=== PATIENT | male | born 1965 | race Caucasian/White ===

== ENCOUNTER 2018-12-07 11:32 | Emergency (ER) | payer MEDICARE ==
[~2018-12-07] VITALS: Ht 193 cm; Wt 105.5 kg
[2018-12-07 11:44] VITALS: Ht 193 cm; Wt 105.5 kg
[2018-12-07] MEDS ORDERED: LISINOPRIL20 MG PO (11:45)
[2018-12-07] MEDS ORDERED: BENZTROPINE MESY1 MG PO (11:46)
[2018-12-07] MEDS ORDERED: PROZAC40 MG PO (11:46)
[2018-12-07] MEDS ORDERED: ZYPREXA10 MG PO (11:46)
[2018-12-07] MEDS ORDERED: OMEPRAZOLE40 MG PO (11:47)
[2018-12-07] MEDS ORDERED: INCRUSE ELLI62.5 MCG INH (11:47)
[2018-12-07] MEDS ORDERED: FERROUS SULFAT325 MG PO (11:47)
[2018-12-07] MEDS ORDERED: ALBUTEROL SULF8.5 GM INH (11:48)
[2018-12-07] MEDS ORDERED: CRESTOR20 MG PO (11:48)
[2018-12-07] MEDS ORDERED: VASCEPA1 GM PO (11:48)
[2018-12-07] MEDS ORDERED: GLUCOPHAGE1000 MG PO (11:49)
[2018-12-07] MEDS ORDERED: GLUCOTROL 5 MG T5 MG PO (11:49)
[2018-12-07 12:41] LABS: BASOPHILS 0.2 % (0-2); EOSINOPHILS 0.9 % (0-7); HEMATOCRIT 37.9 % (42.0-54.0); HEMOGLOBIN 12.6 g/dL (13.5-17.5); IMMATURE GRANULOCYTES 0.2 % (0-5); LYMPHOCYTES 18.6 % (15-50); MCH 29.9 pg (26.0-34.0); MCHC 33.2 g/dL (31.0-37.0); MCV 89.8 fL (80.0-100.0); MEAN PLATELET VOLUME 9.3 fL (7.4-10.4); MONOCYTES 6.4 % (2-11); NEUTROPHILS 73.7 % (40-80); PLATELET COUNT 463 10x3/uL (130-400); RBC 4.22 10x6/uL (4.20-6.10); RDW 13.4 % (11.5-14.5)
[2018-12-07 12:46] LABS: INR 1.08 (0.85-1.17); PROTIME 13.5 SECONDS (11.6-15.0)
[2018-12-07 12:47] LABS: APTT 30.8 SECONDS (22.8-39.4)
[2018-12-07 13:15] LABS: ALKALINE PHOSPHATASE 41 U/L (46-116); ALT (SGPT) 20 U/L (10-68); BILIRUBIN - TOTAL 0.29 mg/dL (0.2-1.3); CALC OSMOLALITY 265 mosm/kg (275-300); CALCIUM 8.2 mg/dL (8.5-10.1); CARBON DIOXIDE 30.5 mmol/L (21.0-32.0); CHLORIDE - SERUM 101 mmol/L (98-107); GLUCOSE 74 mg/dL (74-106); POTASSIUM - SERUM 3.1 mmol/L (3.5-5.1); PROTEIN - SERUM 7.5 g/dL (6.4-8.2); SODIUM 133 mmol/L (136-145); UREA NITROGEN 14 mg/dL (7-18); eGFR NON AFRICAN AMERICAN 83 mL/min (90-120)
[2018-12-07 13:24] LABS: CKMB 1.1 U/L (0.0-3.6); CREATINE KINASE 85 UL (21-232); TROPONIN-I < 0.017 ng/mL (0.000-0.060)
[2018-12-07 15:58] LABS: ERYTHROCYTE SEDIMENTATION RATE 42 mm/hr (0-20)
[2018-12-07 16:12] LABS: APPEARANCE CLEAR (CLEAR); BILIRUBIN NEGATIVE (NEGATIVE); COLOR YELLOW (YELLOW); GLUCOSE NEGATIVE (NEGATIVE); KETONE NEGATIVE (NEGATIVE); NITRITE NEGATIVE (NEGATIVE); PROTEIN TRACE mg/dL (NEGATIVE); UROBILINOGEN NORMAL (NORMAL)
[2018-12-07 16:18] LABS: BACTERIA FEW /hpf (NONE SEEN); MUCUS <1+ /lpf (NONE SEEN); RED CELLS - URINE 0-5 /hpf (0-5)
[2018-12-07] MEDS ORDERED: DOXYCYCLINE HY100 M2 PO (17:18)
[2018-12-07 18:35] VITALS: BP 134/76
== END 2018-12-07 18:36 | disposition home or self-care (01) ==
LOC: D.ER 11:32
PROVIDERS: Family Medicine
DX: R53.1 Weakness (principal); D72.829 Elevated white blood cell count, unspecified

== ENCOUNTER → 2018-12-08 08:51 | Outpatient (CLI) | payer MEDICARE, MEDICAID ==
[2018-12-07 11:44] VITALS: BMI 28.3
[~2018-12-08 08:51] MED LIST: ALBUTEROL SULF8.5 GM INH; BENZTROPINE MESY1 MG PO; CRESTOR20 MG PO; DOXYCYCLINE HY100 M2 PO; FERROUS SULFAT325 MG PO; GLUCOPHAGE1000 MG PO; GLUCOTROL 5 MG T5 MG PO; INCRUSE ELLI62.5 MCG INH; LISINOPRIL20 MG PO; OMEPRAZOLE40 MG PO; PROZAC40 MG PO; VASCEPA1 GM PO; ZYPREXA10 MG PO
== END | disposition home or self-care (01) ==
LOC: D.CT 08:51
PROVIDERS: ATTEND Internal Medicine
DX: R10.9 Unspecified abdominal pain (principal)